=== PATIENT | male | born 1985 ===

== ENCOUNTER 2016-09-26 18:23 | Emergency (ER) | payer SELFPAY ==
[2016-09-26 18:50] VITALS: BP 137/94
[2016-09-26 19:25] LABS: Bilirubin,Urine NEG (Negative); Blood,Urine NEG (Negative); Ketones,Urine NEG (Negative); Leukocyte Esterase,Urine TR (Negative); Mucus,Urine FEW /HPF; Nitrite,Urine NEG (Negative); Protein,Urine <15 mg/dL mg/dL (Negative); Urobilinogen,Urine < 2.0 mg/dL (<2.0)
[2016-09-26 20:50] LABS: Eosinophils % (Auto) 2.2 % (0.0-4.3); Hematocrit 42.6 % (35.5-45.6); Hemoglobin 13.8 gm/dl (11.8-15.2); Mean Corpuscular HGB Conc 33 % (32-34); Mean Corpuscular Hemoglobin 27 pg (28-32); Mean Corpuscular Volume 84 fl (84-94); Red Blood Count 5.09 M/mm3 (3.65-5.03); Red Cell Distribution Width 15.1 % (13.2-15.2); White Blood Count 6.2 K/mm3 (4.5-11.0)
[2016-09-26 20:52] LABS: Platelet Count 210 K/mm3 (140-440)
[2016-09-26 21:10] LABS: Alanine Aminotransferase 16 units/L (7-56); Albumin 4.4 g/dL (3.9-5); Albumin/Globulin Ratio 1.3 %; Alkaline Phosphatase 56 units/L (35-129); Anion Gap 15 mmol/L; BUN/Creatinine Ratio 12.22; Bilirubin,Total 0.3 mg/dL (0.1-1.2); Blood Urea Nitrogen 11 mg/dL (9-20); Calcium 9.9 mg/dL (8.4-10.2); Carbon Dioxide 26 mmol/L (22-30); Chloride 102.9 mmol/L (98-107); Glucose 89 mg/dL (75-100); Lipase 16 units/L (13-60); Potassium 4.9 mmol/L (3.6-5.0); Sodium 139 mmol/L (137-145); Total Protein 7.8 g/dL (6.3-8.2)
== END 2016-09-27 04:27 | disposition left against medical advice (07) ==
LOC: ED 18:23
DX: R10.9 Unspecified abdominal pain (principal); Z53.21 Procedure and treatment not carried out due to patient leaving prior to being seen by health care provider
CPT/HCPCS: 36415; 80053; 81001; 83690; 85025